=== PATIENT | male | born 1955 | race Caucasian/White ===

== ENCOUNTER 2020-08-26 17:27 | Observation (INO) | payer OTHER ==
[2020-08-26 18:19] LABS: #Monocytes 0.6 10x3/uL (0.0-1.1); #Neutrophils 3.1 10x3/uL (1.5-8.4); %Basophils 0.2 % (0.0-2.0); %Eosinophils 0.9 % (0.0-6.0); %Lymphocytes 18.5 % (18.0-47.0); %Monocytes 12.4 % (0.0-10.0); %Neutrophils 67.8 % (40.0-75.0); Hemoglobin 12.8 g/dL (13.5-17.5); Mean Corpuscular HGB CONC 33.5 g/dL (32.0-36.0); Mean Corpuscular Hemoglobin 30.5 pg (27.0-33.0); Mean Platelet Volume 10.8 fl (7.4-10.4); Platelet Count 165 10x3/uL (150-450); RBC Distribution Width 12.4 % (11.5-14.5); White Blood Cell (WBC) Count 4.5 10x3/uL (3.5-10.5)
[2020-08-26] MEDS ORDERED: Fentanyl 100 MCG/2 ML VIAL ONE (18:22)
[2020-08-26 18:24] LABS: Digoxin Less than 0.15 ng/mL (0.8-2.0)
[2020-08-26 18:26] LABS: ALT (SGPT) 12 U/L (8-55); AST (SGOT) 11 U/L (5-34); Albumin 3.9 g/dL (3.4-4.8); Alkaline Phosphatase 55 U/L (40-110); Anion Gap 10 mmol/L (10-20); BUN (Urea Nitrogen) 15 mg/dL (8.4-25.7); Bilirubin, Total 0.5 mg/dL (0.2-1.2); Calc. Creatinine Clearance 0 mL/min (70-130); Calcium 8.4 mg/dL (7.8-10.44); Carbon Dioxide 23 mmol/L (23-31); Chloride 105 mmol/L (98-107); Globulin 2.6 g/dL (2.4-3.5); Glucose 95 mg/dL (80-115); Lipase 38 U/L (8-78); Potassium 4.4 mmol/L (3.5-5.1); Protein, Total 6.5 g/dL (5.8-8.1); Sodium 134 mmol/L (136-145)
[2020-08-26] MEDS ORDERED: Nitroglycerin 2% Ointment 1 INCH/1 GM Packet ONE (20:33)
[2020-08-26] MEDS ORDERED: Guaifenesin DM 100-10/5 ML UDCUP PO PRN (20:56)
[2020-08-26] MEDS ORDERED: Senokot S 8.6-50 MG TAB PO PRN (20:56)
[2020-08-26] MEDS ORDERED: Calcium Carbonate 500 MG ChewTAB PO PRN (20:56)
[2020-08-26] MEDS ORDERED: Metoprolol Tartrate 25 MG TAB PO SCH (21:15)
[2020-08-26 22:06] VITALS: BMI 24.3
[2020-08-26] MEDS ORDERED: Atorvastatin Calcium 40 MG TAB PO SCH (22:30)
[2020-08-26] MEDS ORDERED: Enoxaparin Sodium 80 MG/0.8 ML SYRINGE SC SCH (22:30)
[2020-08-26] MEDS ORDERED: TICAGRELOR 90 MG TABLET PO SCH (22:30)
[2020-08-26] MEDS: Fentanyl 100 MCG/2 ML VIAL SLOW IVP PRN (23:00)
[2020-08-27] MEDS: Nitroglycerin 0.4 MG TAB (25 Tab Bottle) SL PRN ×3 (04:54→05:10)
[2020-08-27] MEDS: Fentanyl 100 MCG/2 ML VIAL SLOW IVP PRN (05:31)
[2020-08-27] MEDS: Metoprolol Tartrate 25 MG TAB PO SCH ×2 (09:23→20:59)
[2020-08-27] MEDS: Aspirin 81 mg Enteric Coated Tablet PO SCH (09:24)
[2020-08-27] MEDS: Amlodipine 5 MG TAB PO SCH (09:25)
[2020-08-27] MEDS: Cyanocobalamin (Vitamin B-12) 1,000 MCG TAB PO SCH (09:26)
[2020-08-27] MEDS: TICAGRELOR 90 MG TABLET PO SCH ×2 (09:26→20:59)
[2020-08-27] MEDS: Lisinopril 10 MG TAB PO SCH (09:27)
[2020-08-27] MEDS: Calcium Carbonate 600 MG TAB PO SCH (09:27)
[2020-08-27] MEDS: Enoxaparin Sodium 40 MG/0.4 ML SYRINGE SC SCH (09:28)
[2020-08-27] MEDS: Nitroglycerin 0.2mg/Hour PATCH TD SCH ×2 (12:35→15:12)
[2020-08-27] MEDS: Acetaminophen 325 MG TAB PO PRN ×2 (15:49→23:33)
[2020-08-27 17:58] LABS: Troponin I 0.012 ng/mL (< 0.028)
[2020-08-27] MEDS ORDERED: HYDROcodone/Acetaminophen 5/325 mg Tablet PO PRN (18:53)
[2020-08-27 19:48] LABS: SARS-CoV-2 PCR by NAA Not Detected (NotDetected)
[2020-08-27] MEDS ORDERED: Atorvastatin Calcium 40 MG TAB PO SCH (21:00)
[2020-08-28] MEDS: Acetaminophen 325 MG TAB PO PRN (05:02)
[2020-08-28] MEDS: Metoprolol Tartrate 25 MG TAB PO SCH (09:01)
[2020-08-28] MEDS: Aspirin 81 mg Enteric Coated Tablet PO SCH (09:01)
[2020-08-28] MEDS: Lisinopril 10 MG TAB PO SCH (09:02)
[2020-08-28] MEDS: TICAGRELOR 90 MG TABLET PO SCH (09:02)
[2020-08-28] MEDS: Amlodipine 5 MG TAB PO SCH (09:03)
[2020-08-28] MEDS: Enoxaparin Sodium 40 MG/0.4 ML SYRINGE SC SCH (09:04)
[2020-08-28] MEDS: Cyanocobalamin (Vitamin B-12) 1,000 MCG TAB PO SCH (09:04)
[2020-08-28] MEDS: Calcium Carbonate 600 MG TAB PO SCH (19:23)
[2020-08-28] MEDS: Nitroglycerin 0.2mg/Hour PATCH TD SCH (19:24)
[2020-08-28 19:31] VITALS: BP 137/84; TEMP 97.8
== END 2020-08-28 09:00 | disposition short-term general hospital (02) ==
LOC: EEVIPCON 17:27 → CSHERS 17:27 → CSHTELE 22:02
PROVIDERS: ADMIT Student in an Organized Health Care Education/Training Program; ATTEND Hospitalist
DX: I25.110 Atherosclerotic heart disease of native coronary artery with unstable angina pectoris (principal); Z95.5 Presence of coronary angioplasty implant and graft; I10 Essential (primary) hypertension; Z95.1 Presence of aortocoronary bypass graft; Z79.899 Other long term (current) drug therapy; Z79.82 Long term (current) use of aspirin; Z87.891 Personal history of nicotine dependence; D47.Z2 Castleman disease; Z87.11 Personal history of peptic ulcer disease; Z20.822 Contact with and (suspected) exposure to COVID-19
CPT/HCPCS: 36415; 71045; 80053; 80162; 83690; 84484; 85025; 87635; 93005; 93010; 94760; 96372; 96374; G0378; J1650; J3010; U0003; U0005